=== PATIENT | male | born 1950 | race Caucasian/White ===

== ENCOUNTER → 2021-01-26 10:03 | Outpatient (CLI) | payer MEDICARE, SELFPAY ==
[2021-01-26 10:57] LABS: Hemoglobin A1c 6.4 % (3.8-5.6)
[2021-01-26 11:17] LABS: Anion Gap 5 (5-15); BUN 10 mg/dL (7-18); BUN/Creat Ratio 13.1 RATIO (10-20); Chloride 108 mmol/L (98-107); Creatinine, Serum 0.76 mg/dL (0.70-1.30); EST Glomerular Filtration Rate 106 mL/min (>60); Est Glom Filt Rate - Afr Amer 129 mL/min (>60); Glucose 154 mg/dL (74-106); Potassium 4.1 mmol/L (3.5-5.1); Sodium Level 139 mmol/L (136-145)
== END ==
PROVIDERS: PCP Nurse Practitioner Primary Care; Referring Provider Urology; Visit Provider Urology
DX: R35.0 Frequency of micturition (principal); R31.21 Asymptomatic microscopic hematuria
CPT/HCPCS: 36415; 80048; 83036; 84153; 87077; 87086; 87088; 87186

== ENCOUNTER → 2021-11-02 | Outpatient (CLI) | payer MEDICARE, SELFPAY ==
[2021-11-02 16:53] LABS: PSA,Total- Diagnostic 3.56 ng/mL (0.0-4.0)
== END | disposition home or self-care (01) ==
LOC: LAB 15:28
PROVIDERS: PCP Nurse Practitioner Primary Care; Referring Provider Urology; Visit Provider Urology
DX: R97.20 Elevated prostate specific antigen [PSA] (principal)
CPT/HCPCS: 36415; 84153

== ENCOUNTER → 2022-04-05 | Outpatient (CLI) | payer MEDICARE, SELFPAY ==
[2022-04-05 12:59] LABS: PSA,Total- Diagnostic 3.25 ng/mL (0.0-4.0)
== END | disposition home or self-care (01) ==
PROVIDERS: PCP Nurse Practitioner Primary Care; Referring Provider Urology; Visit Provider Urology
DX: R97.20 Elevated prostate specific antigen [PSA] (principal)
CPT/HCPCS: 36415; 84153

== ENCOUNTER → 2023-03-21 | Outpatient (CLI) | payer MEDICARE, SELFPAY ==
[2023-03-21 11:34] LABS: PSA,Total- Diagnostic 5.72 ng/mL (0.0-4.0)
== END | disposition home or self-care (01) ==
LOC: LAB 10:27
PROVIDERS: PCP Nurse Practitioner Primary Care; Referring Provider Urology; Visit Provider Urology
DX: R97.20 Elevated prostate specific antigen [PSA] (principal)
CPT/HCPCS: 36415; 84153

== ENCOUNTER → 2023-10-24 | Outpatient (CLI) | payer MEDICARE, SELFPAY ==
[2023-10-24 11:59] LABS: PSA,Total- Diagnostic 4.54 ng/mL (0.0-4.0)
== END | disposition home or self-care (01) ==
LOC: LAB 10:44
PROVIDERS: PCP Nurse Practitioner Primary Care; Referring Provider Urology; Visit Provider Urology
DX: R97.20 Elevated prostate specific antigen [PSA] (principal)
CPT/HCPCS: 36415; 84153

== ENCOUNTER → 2024-01-09 | Outpatient (CLI) | payer MEDICARE, SELFPAY ==
--- NOTE | 2024-01-09 15:59 | CT_ITS ---
STUDY: CT ABDOMEN AND PELVIS WITH AND WITHOUT CONTRAST REASON FOR EXAM: Male, 73 years old. GROSS HEMATURIA. Dysuria. RADIATION DOSAGE (If Supplied By Facility): CTDIvol = ( 24.17 ) mGy, DLP = ( 2868.96 ) mGycm TECHNIQUE: Transaxial images were obtained from the dome of the diaphragm to the symphysis pubis without oral contrast. 100ml- ISOVUE 300 was administered. Sagittal and coronal images were reconstructed. Individualized dose optimization techniques were used for this CT. COMPARISON: None. FINDINGS: The visualized lung bases are unremarkable. Coronary artery calcification. A subcentimeter cyst is seen in the left lobe of the liver. There is fatty infiltration of the liver. Normal gallbladder and extrahepatic biliary system. Normal spleen. There is a 1.8 cm cyst in the tail portion of the pancreas. Tiny cystic structures are also seen in the region of the head and uncinate process of the pancreas. Normal bilateral adrenal glands. There is a 1 cm cyst in the lower pole of the right kidney as well as a 8 mm cyst in the medial midportion of the right kidney. There is a 5.3 cm x 4.8 cm cyst in the posterior inferior pole of the left kidney. Normal visualized stomach. Normal small intestine. There are multiple colonic diverticula consistent with diverticulosis. The appendix is visualized and appears normal. Normal abdominal aorta. Normal inferior vena cava. Normal retroperitoneum. Normal urinary bladder. There is heterogeneous enlargement of the prostate. The prostate measures 6.2 cm x 4.6 cm. Calcifications are seen within it. This causes indentation at the bladder base. Normal abdominal wall. There are diffuse degenerative changes of the visualized lumbar spine. Degenerative changes of the sacroiliac joints bilaterally. The patient is status post right total hip replacement. CT/CT Abd/Pelvis W/WO Contrast IMPRESSION: 1.8 cm cystic structure in the tail portion of pancreas as well as tiny cystic structures in the head and uncinate process of the pancreas. Correlation with MRI is recommended. Bilateral renal cysts more prominent on the left side. Heterogeneous enlargement of the prostate with calcifications and indentation at the bladder base. Electronically Signed: Mehran Diallo MD at 8:54 EDT ,
[2024-01-09 16:39] LABS: CREATININE FINGERSTICK < 1.0 mg/dL (0.70-1.30); EGFR FINGERSTICK > 60.0000 mL/min (>60)
== END | disposition home or self-care (01) ==
LOC: CT 15:53
PROVIDERS: PCP Nurse Practitioner Primary Care; Visit Provider Urology
DX: R31.0 Gross hematuria (principal)
CPT/HCPCS: 74178; Q9967

== ENCOUNTER → 2024-10-09 | Outpatient (CLI) | payer MEDICARE, SELFPAY | END | disposition home or self-care (01) | PROVIDERS: PCP Nurse Practitioner Primary Care; Referring Provider Urology; Visit Provider Urology | DX: N39.0 Urinary tract infection, site not specified (principal) | CPT/HCPCS: 87077; 87086; 87088; 87186 ==

== ENCOUNTER → 2025-04-09 | Outpatient (CLI) | payer MEDICARE, SELFPAY ==
[2025-04-09 12:09] LABS: PSA,Total- Diagnostic 4.86 ng/mL (0.00-4.00)
== END | disposition home or self-care (01) ==
LOC: LAB 10:31
PROVIDERS: PCP Nurse Practitioner Primary Care; Referring Provider Urology; Visit Provider Urology
DX: R97.20 Elevated prostate specific antigen [PSA] (principal)
CPT/HCPCS: 36415; 84153